=== PATIENT | male | born 1995 | race American Indian/Alaskan Native ===

== ENCOUNTER 2016-05-27 10:43 | Emergency (ER) | payer OTHER ==
[2016-05-27 12:12] VITALS: BP 143/79
[2016-05-27] MEDS: MOTRIN PO ONE (13:52)
[2016-05-27] MEDS: HYDROGEN PEROXIDE TP ONE (13:52)
--- NOTE | 2016-05-27 14:39 | Emergency Department Report ---
ED ENT HPI - General Chief complaint: Earache Stated complaint: BUG IN EAR/PAIN Time Seen by Provider: 05/27/16 13:33 Source: patient Mode of arrival: Ambulatory Limitations: No Limitations - History of Present Illness Initial comments: 20-year-old male presents with complaint of 23 days of right-sided earache. Foreign body sensation feels something stuck in his right ear. Hearing intact. Denies any fever or chills. Patient states he has had minor nonproductive cough for last several days. MD complaint: ear pain Onset/Timin -: days(s) Location: R ear Severity: moderate Severity scale (0 -10): 5 Consistency: constant - Related Data Previous Rx's Medication Instructions Recorded Last Taken Type Amoxicillin [Trimox CAP] 500 mg PO Q8H #21 capsule 05/27/16 Unknown Rx Ibuprofen [Motrin] 600 mg PO Q8H PRN #30 tablet 05/27/16 Unknown Rx Neomy/Polymyx B/Hc (Otic) Soln 4 drops OTIC TID #1 bottle 05/27/16 Unknown Rx [Cortisporin (Otic) Soln] Allergies Allergy/AdvReac Type Severity Reaction Status Date / Time No Known Allergies Allergy Verified 04/05/16 20:04 ED Dental HPI - General Chief complaint: Earache Stated complaint: BUG IN EAR/PAIN Time Seen by Provider: 05/27/16 13:33 Source: patient Mode of arrival: Ambulatory Limitations: No Limitations - Related Data Previous Rx's Medication Instructions Recorded Last Taken Type Amoxicillin [Trimox CAP] 500 mg PO Q8H #21 capsule 05/27/16 Unknown Rx Ibuprofen [Motrin] 600 mg PO Q8H PRN #30 tablet 05/27/16 Unknown Rx Neomy/Polymyx B/Hc (Otic) Soln 4 drops OTIC TID #1 bottle 05/27/16 Unknown Rx [Cortisporin (Otic) Soln] Allergies Allergy/AdvReac Type Severity Reaction Status Date / Time No Known Allergies Allergy Verified 04/05/16 20:04 ED Review of Systems ROS: Stated complaint: BUG IN EAR/PAIN Other details as noted in HPI Constitutional: denies: chills, fever Eyes: denies: eye pain, eye discharge, vision change ENT: ear pain. denies: throat pain Respiratory: denies: cough, shortness of breath, wheezing Cardiovascular: denies: chest pain, palpitations Endocrine: no symptoms reported Gastrointestinal: denies: abdominal pain, nausea, diarrhea Genitourinary: denies: urgency, dysuria Musculoskeletal: denies: back pain, joint swelling, arthralgia Skin: denies: rash, lesions Neurological: denies: headache, weakness, paresthesias Psychiatric: denies: anxiety, depression Hematological/Lymphatic: denies: easy bleeding, easy bruising ED Past Medical Hx - Past Medical History Previous Medical History?: No - Surgical History Past Surgical History?: No - Social History Smoking Status: Never Smoker Substance Use Type: Alcohol - Medications Home Medications: Home Medications Medication Instructions Recorded Confirmed Last Taken Type Amoxicillin [Trimox CAP] 500 mg PO Q8H #21 capsule 05/27/16 Unknown Rx Ibuprofen [Motrin] 600 mg PO Q8H PRN #30 tablet 05/27/16 Unknown Rx Neomy/Polymyx B/Hc (Otic) Soln 4 drops OTIC TID #1 bottle 05/27/16 Unknown Rx [Cortisporin (Otic) Soln] ED Physical Exam - General Limitations: No Limitations General appearance: alert, in no apparent distress - Head Head exam: Present: atraumatic, normocephalic - Eye Eye exam: Present: normal appearance, PERRL, EOMI - ENT ENT exam: Present: mucous membranes moist - Expanded ENT Exam Expanded TM/Canal exam: Erythema: Right TM, Bulging: Right TM, Cerumen Impaction: Right TM (no insect seen by large cerumen impaction right ear canal) - Neck Neck exam: Present: normal inspection - Respiratory Respiratory exam: Present: normal lung sounds bilaterally. Absent: respiratory distress - Cardiovascular Cardiovascular Exam: Present: regular rate, normal rhythm. Absent: systolic murmur, diastolic murmur, rubs, gallop - GI/Abdominal GI/Abdominal exam: Present: soft, normal bowel sounds - Rectal Rectal exam: Present: deferred - Extremities Exam Extremities exam: Present: normal inspection - Back Exam Back exam: Present: normal inspection - Neurological Exam Neurological exam: Present: alert, oriented X3 - Psychiatric Psychiatric exam: Present: normal affect, normal mood - Skin Skin exam: Present: warm, dry, intact, normal color. Absent: rash ED Course Vital Signs 02/08/17 02/08/17 12:09 13:52 Temperature 98.1 F Pulse Rate 69 Respiratory 18 18 Rate Blood Pressure 143/79 O2 Sat by Pulse 99 Oximetry ED Medical Decision Making - Medical Decision Making a/p: Cerumen impaction right ear, acute otitis media 1- Corticosporin, amoxicillin, Motrin 2-primary care doctor and ENT 3- lumen flushed from ear canal with hydroperoxide and saline ear canal patent no foreign body remains, hearing intact procedure tolerated well Critical care attestation.: If time is entered above; I have spent that time in minutes in the direct care of this critically ill patient, excluding procedure time. ED Disposition Clinical Impression: Earache symptoms in right ear, Impacted cerumen of right ear Acute otitis externa of right ear Qualifiers: Otitis externa type: unspecified type Qualified Code(s): H60.501 - Unspecified acute noninfective otitis externa, right ear Disposition: DISCHARGED TO HOME OR SELFCARE Is pt being admited?: No Does the pt Need Aspirin: No Condition: Stable Instructions: Otitis Externa (ED), Cerumen Impaction (ED), Otitis Media (ED) Prescriptions: Amoxicillin [Trimox CAP] 500 mg PO Q8H #21 capsule Ibuprofen [Motrin] 600 mg PO Q8H PRN #30 tablet PRN Reason: Pain Neomy/Polymyx B/Hc (Otic) Soln [Cortisporin (Otic) Soln] 4 drops OTIC TID #1 bottle Referrals: PRIMARY CAREMD [Primary Care Provider] - 3-5 Days DENNIS VILA MD [Staff Physician] - 3-5 Days Forms: Accompanied Note, Work/School Release Form(ED) Time of Disposition: 14:48
== END 2016-05-27 15:29 | disposition home or self-care (01) ==
LOC: ED 10:43
DX: H61.21 Impacted cerumen, right ear (principal); H60.501 Unspecified acute noninfective otitis externa, right ear

== ENCOUNTER 2016-10-18 14:34 | Emergency (ER) | payer SELFPAY ==
[2016-10-18 15:19] VITALS: BP 110/73
[2016-10-18] MEDS ORDERED: XYLOCAINE 2% INFILTRATI ONE (21:43)
--- NOTE | 2016-10-18 21:49 | Emergency Department Report ---
HPI - General Chief Complaint: Extremity Injury, Lower Time Seen by Provider: 10/18/16 21:32 - HPI HPI: This is a 21-year-old Afro-[place] male presents the emergency department with complaint of pain and possible infection to the right great toe around the toenail. It is been getting red, painful and slightly swollen over the past few days. The patient thinks he has an ingrown toenail and says that he has been treated for the same in the past. He's been trying to clean the area with alcohol and Q-tips. He denies any fever. He has not taken anything for discomfort prior presentation. He does not have a primary care physician. ED Past Medical Hx - Past Medical History Previous Medical History?: No - Surgical History Past Surgical History?: No - Social History Smoking Status: Never Smoker Substance Use Type: None - Medications Home Medications: Home Medications Medication Instructions Recorded Confirmed Last Taken Type Amoxicillin [Trimox CAP] 500 mg PO Q8H #21 capsule 05/27/16 Unknown Rx Ibuprofen [Motrin] 600 mg PO Q8H PRN #30 tablet 05/27/16 Unknown Rx Neomy/Polymyx B/Hc (Otic) Soln 4 drops OTIC TID #1 bottle 05/27/16 Unknown Rx [Cortisporin (Otic) Soln] HYDROcodone/APAP 5-325 [[place] 1 each PO Q6HR PRN #8 tablet 10/18/16 Unknown Rx 5/325] Sulfamethoxazole/Trimethoprim 1 each PO BID #10 tablet 10/18/16 Unknown Rx [Bactrim DS TAB] ED Review of Systems ROS: Stated complaint: INGROWN TOENAIL Other details as noted in HPI Comment: All other systems reviewed and negative Constitutional: denies: chills, fever Eyes: denies: eye pain, eye discharge, vision change ENT: denies: ear pain, throat pain Respiratory: denies: cough, shortness of breath, wheezing Cardiovascular: denies: chest pain, palpitations Gastrointestinal: denies: abdominal pain, nausea, diarrhea Genitourinary: denies: urgency, dysuria Musculoskeletal: arthralgia. denies: back pain Skin: change in color. denies: rash Neurological: denies: headache, weakness, paresthesias Physical Exam - Physical Exam Vital Signs: Vital Signs 10/18/16 15:17 Temperature 98.7 F Pulse Rate 70 Respiratory 16 Rate Blood Pressure 110/73 O2 Sat by Pulse 100 Oximetry Physical Exam: GENERAL: The patient is well-developed well-nourished. HEENT: Normocephalic. Atraumatic. Extraocular motions are intact. Patient has moist mucous membranes. NECK: Supple. Trachea is midline. CHEST/LUNGS: Clear to auscultation. There is no respiratory distress noted. HEART/CARDIOVASCULAR: Regular. There is no tachycardia. There is no gallop rub or murmur. ABDOMEN: Abdomen is soft, nontender. Patient has normal bowel sounds. There is no abdominal distention. SKIN: There is some swelling and fluctuance to the lateral portion of the right great toe next to the toenail appears consistent with both inflammation and possible paronychia. There is a lateral ingrown toenail to this region. NEURO: The patient is awake, alert, and oriented. The patient is cooperative. The patient has no focal neurologic deficits. The patient has normal speech. MUSCULOSKELETAL: There is moderate tenderness to palpation to the lateral portion of the right great toe where the patient appears to have a paronychia and some inflammation from ingrown toenail. There is no limitation range of motion. ED Course Vital Signs 10/18/16 15:17 Temperature 98.7 F Pulse Rate 70 Respiratory 16 Rate Blood Pressure 110/73 O2 Sat by Pulse 100 Oximetry - I & D Right Toe Type of Procedure: Simple Site: right great toe Blade Size: 11 I & D Procedure: betadine prep, sterile dressing applied Progress: After a digital block was done with successful local anesthesia, the area was cleaned with Betadine. The right lateral area of the great toe was incised with an 11 blade scalpel. There was a very small amount of purulent discharge and some bleeding. Less than 5 mL of blood loss. There was no room for packing. Manual attempt at breaking up any possible loculations. The area was then covered with sterile gauze. There was no obvious complications. - Nerve Block Consent Obtained: verbal consent Time Out Performed: Yes Local Anesthetic Used: Lidocaine 2% Amount of anesthesia used: 6 Side: right Nerve Blocks: digital (1st right toe (great toe)) Procedure Successful: Yes Complications: none Patient Tolerated Procedure: well ED Medical Decision Making - Medical Decision Making 21-year-old male presents with what appears to be a ingrown toenail that has caused some inflammation as well as a small paronychia. The area was cleaned with alcohol swabs. The patient then had a digital block of the right great toe with complete anesthesia. At this point the area of swelling and fluctuance was incised with an 11 blade with a very small amount of purulent discharge and some mild bleeding. The area was then cleaned and covered with sterile gauze. He was given a first dose of Bactrim and will be sent home with some small amount of pain medication as well as a 5 day course of Bactrim and was given a referral for a local pc maintenance technician. - Differential Diagnosis ingrown toenail, paronychia, cellulitis Critical Care Time: No Critical care attestation.: If time is entered above; I have spent that time in minutes in the direct care of this critically ill patient, excluding procedure time. ED Disposition Clinical Impression: Ingrown right greater toenail, Paronychia of great toe, right Disposition: - TO HOME OR SELFCARE Is pt being admited?: No Condition: Stable Instructions: Paronychia (ED), Ingrown Nail (ED) Additional Instructions: Please use soap and water to clean the toe. You should soak the toe nail and toe in warm water multiple times per day. Follow-up with a pc maintenance technician in the next few days. Return to the emergency department with any worsening of her symptoms or any acute distress. You've been prescribed a medication that is sedating. Therefore this medication cannot be mixed with alcohol, or taken prior to driving, working, or being responsible for children. Prescriptions: HYDROcodone/APAP 5-325 [[place] 5/325] 1 each PO Q6HR PRN #8 tablet PRN Reason: Pain Sulfamethoxazole/Trimethoprim [Bactrim DS TAB] 1 each PO BID #10 tablet Referrals: JESSICA HAN MD [Staff Physician] - 3-5 Days Forms: Work/School Release Form(ED) Time of Disposition: 22:16
[2016-10-18] MEDS ORDERED: BACTRIM DS PO ONE (22:17)
== END 2016-10-18 22:45 | disposition home or self-care (01) ==
LOC: ED 14:34
DX: L03.031 Cellulitis of right toe (principal); L60.0 Ingrowing nail